=== PATIENT | female | born 1960 | race Hispanic/Latino ===

== ENCOUNTER 2025-02-18 18:20 | Emergency (ER) | payer OTHER ==
[~2025-02-18] VITALS: Ht 170.2 cm; Wt 101.6 kg
[2025-02-18 18:21] VITALS: BP 191/105; PULSE 86; RESP 16; TEMP 99.8
--- NOTE | 2025-02-18 18:28 | ERN ---
ED Note History of Present Illness Stated Complaint: HEADACHE, NECK PAIN X 4 DAYS Chief Complaint: Headache Time Seen by MD: 18:23 Dictation: PATIENT IS A 64-YEAR-OLD FEMALE COMING IN WITH COMPLAINTS OF AN OCCIPITAL HEADACHE WITHOUT NAUSEA VOMITING DIARRHEA OR PERSONALITY CHANGES SHE HAS HAD FOUR DAYS. SHE DOES STATE SHE FELT APPROXIMATE ONE MONTH AGO NO LOC NO NAUSEA VOMITING NO BLOOD THINNERS. SHE STATES WHEN THE PAIN STARTED THIS TIME SHE WAS AT A IN [facility], DID NOT STOP BECAUSE THE EMERGENCY ROOMS ANALYSIS [place] DO NOT ACCEPT [facility]. FEEL THEY FINISHED UP THERE PROCEEDINGS AND THEN CAME BACK TO [place]. Allergies: Coded Allergies: Penicillins (Unverified Allergy, Unknown, 02/18/25) Past Medical History Past Medical History: CHF, Diabetes-Type II, High Cholesterol, Heart Disease, Hypertension Surgical History: Hysterectomy, Cholecystectomy, Pacer/AICD Surgical History Other: THYROID History: Not Applicable RN Note Reviewed/Agreed w/PFSH: Yes Review of System Dictation CONSTITUTIONAL: NEGATIVE EXCEPT FOR HPI HEAD/FACE: NEGATIVE EXCEPT FOR HPI EENT: NEGATIVE EXCEPT FOR HPI RESPIRATORY: NEGATIVE EXCEPT FOR HPI GASTROINTESTINAL/ABDOMINAL: NEGATIVE EXCEPT FOR HPI GENITOURINARY: NEGATIVE EXCEPT FOR HPI MUSCULOSKELETAL: NEGATIVE EXCEPT FOR HPI INTEGUMENTARY: NEGATIVE EXCEPT FOR HPI NEUROLOGICAL/PSYCH: NEGATIVE EXCEPT FOR HPI OCCIPITAL HEADACHE HEMATOLOGIC/LYMPHATIC: NEGATIVE EXCEPT FOR HPI ALL SYSTEMS NEGATIVE, EXCEPT NOTED ABOVE. 13 POINT REVIEW OF SYSTEMS ASSESSED AND ALL NEGATIVE EXCEPT FOR ABOVE. Initial Vital Sign VS Vital Signs Date Time Temp Pulse Resp B/P (MAP) Pulse Ox O2 Delivery O2 Flow Rate FiO2 02/18/25 18:21 99.9 86 16 191/105 94 Room Air 0 Physical Exam Dictation VITAL SIGNS REVIEWED GENERAL APPEARANCE: ALERT, ORIENTED X 3, N MILD ACUTE DISTRESS, WELL DEVELOPED, NOURISHED. MORBID OBESITY HEAD AND FACE: NON-TRAUMATIC. EYES: PERRL, PINK CONJUNCTIVAS, EYELID NO TRAUMA, ANTERIOR CHAMBER WITH ARCUS SENILIS. EARS: PINNAS INTACT AND NO SIGNS OF TRAUMA OR ERYTHEMA EAR CANALS CLEAR AND NO DISCHARGE TM NO ERYTHEMA NOSE: NO DISCHARGE, NO BLEEDING. OROPHARYNX: MOUTH NORMAL, TONGUE PINK, PHARYNX CLEAR,NO ERYTHEMA, TONSILS NO EXUDATES, NO ABSCESSES NOTED, MUCOUS MEMBRANE MOIST NECK: SUPPLE, NON-TENDER, NO THYROMEGALY, NO MASSES, NO JVD, NO BRUITS BREAST:DEFERRED CHEST:NO TENDERNESS, NO CREPITUS, NO PARADOXICAL MOVEMENT, NO RETRACTIONS LUNGS:CLEAR, WELL-VENTILATED, SYMMETRIC, NO RALES, NO WHEEZING, NO RHONCHI, NO STRIDOR, GOOD BREATH SOUNDS BILATERALLY HEART: REGULAR RATE, REGULAR RHYTHM, NO MURMUR, NO GALLOPS VASCULAR: NO PERIPHERAL EDEMA, ABDOMEN: SOFT, POSITIVE BOWEL SOUNDS, NONDISTENDED, NO GUARDING, NONTENDER, NO REBOUND, NO MASSES NO HEPATOMEGALY, NO SPLENOMEGALY, NO DISLA'S SIGN, NO HERNIAS. RECTAL: DEFERRED GENITAL: DEFERRED NEUROLOGICAL: NORMAL SPEECH, MOTOR FUNCTION INTACT, SENSORY FUNCTION INTACT NIH IS 0 MUSCULOSKELETAL: NECK NONTENDER, FULL RANGE OF MOTION, BACK NONTENDER, FULL RANGE OF MOTION, NO MIDLINE SPINE PAIN NO STEP-OFFS EXTREMITIES: NONTENDER, FULL RANGE OF MOTION SKIN: COLOR PINK, DRY, NO TURGOR, NO RASH, NO LACERATIONS, NO ABRASIONS, NO CONTUSIONS. LYMPHATIC: DEFERRED Results (Laboratory/Radiology) Laboratory/Radiology CT Head Without IV contrast. CLINICAL HISTORY: OCCIPITAL HEADACHE FOUR DAYS. TECHNIQUE: Axial computed tomography images of the head/brain without intravenous contrast. COMPARISON: None provided. FINDINGS: BRAIN: No evidence of acute hemorrhage. No mass lesion. No CT evidence for acute territorial infarct. No midline shift or extra-axial collections. VENTRICLES: No hydrocephalus. ORBITS: The orbits are unremarkable. SINUSES AND MASTOIDS: The paranasal sinuses and mastoid air cells are clear. BONES: No fracture. SOFT TISSUES: Unremarkable. IMPRESSION: No acute intracranial abnormality. /[place] [facility] Reviewed?: Yes ED Course ED Course Orders Procedure Category Date Status Time Ct Head/Brain W/O CT 02/18/25 Resulted Contrast 18:25 Acetaminophen 500mg PHA 02/18/25 Complete Tab (Tylenol 500mg T 18:30 Clonidine Hcl 0.2 Mg PHA 02/18/25 Complete Tablet (Catapres 0. 19:30 Current Medications Medications (Trade) Dose Ordered Sig/Augustus Route PRN Reason Start Time Stop Time Status Last Admin Dose Admin Acetaminophen (TYLenol 500MG TAB) 1,000 mg ONCE ONCE PO 02/18/25 18:30 02/18/25 18:31 DC Clonidine HCl (CATApres 0.2 MG TAB) 0.2 mg ONCE ONCE PO 02/18/25 19:30 02/18/25 19:31 DC Vital Signs Date Time Temp Pulse Resp B/P (MAP) Pulse Ox O2 Delivery O2 Flow Rate FiO2 02/18/25 18:21 99.9 86 16 191/105 94 Room Air 0 1920/CT OF THE HEAD NEGATIVE. PATIENT HAS BLOOD PRESSURE 194/105. SHE STATES HE TOOK HER BLOOD PRESSURE MEDICATIONS THIS MORNING. WE WILL FOLLOW UP WITH CLONIDINE 0.2 P.O. WE WILL REDUCE HER BLOOD PRESSURE AND HAVE HER FOLLOW UP WITH HER PRIMARY CARE DOCTOR FOR MANAGEMENT.2149/PATIENT AND HER STILL IN THE WAITING ROOM. THEY WERE MADE AWARE THAT THERE WE WILL BE AN EXTENDED WAIT TO GET PATIENT BACK IN. THEY SAID THEY COULD SEE THEIR PRIMARY CARE DOCTOR TOMORROW AND SHE SAID SHE HAS A MOTRIN 800 FOR HER HEADACHE. I ADVISED HIM THEY COULD THINK IT STAY IN AND BE SEEN WHEN BEDS ARE AVAILABLE THEY DECIDED TO GO AND WE WILL SEE THEIR DOCTOR IN [facility] TOMORROW NIH IS 0 Medical Decision Making MDM MEDICAL DISCHARGE MAKING BASED ON EMPIRIC TREATMENT FOR PAIN AND A CT OF THE HEAD TO RULE OUT SUBARACHNOID BLEED VERSUS FRACTURE FROM THE FALL. CT NEGATIVE PATIENT STATES SHE DOES NOT WISH TO STAY IN THE HOSPITAL AND WE WILL FOLLOW UP WITH HER DOCTOR TOMORROW IN [place], [place] SHE STATES SHE HAS A ALL OF HER HYPERTENSIVE MEDICATIONS AND HAS A IBUPROFEN TO TAKE IN HER PURSE. NIH IS 0 ALL QUESTIONS ANSWERED DX & DISP Disposition: Discharge Departure Impression: Primary Impression: Posttraumatic headache Additional Impression: Accelerated hypertension Condition: Stable Additional Instructions: FOLLOW-UP WITH PRIMARY CARE PROVIDER IN 1 TO 2 DAYS. TAKE MEDICATIONS DIRECTED HERE IN THE EMERGENCY ROOM. OKAY TO CONTINUE HOME MEDICATIONS UNLESS OTHERWISE DISCUSSED DURING YOUR VISIT IN THE EMERGENCY ROOM TODAY. RETURN TO YOUR NEAREST EMERGENCY ROOM IF SYMPTOMS WORSEN OR IF THERE IS NO IMPROVEMENT. CALL 911 IF YOU NEED IMMEDIATE ASSISTANCE. TAKE TYLENOL OR MOTRIN [id number] TER NEEDED AND IF NO CONTRAINDICATIONS ARE PRESENT. INCREASE ORAL HYDRATION. A WOUND CULTURE OR URINE CULTURE WAS ORDERED HERE IN THE EMERGENCY ROOM DEPARTMENT PLEASE FOLLOW-UP WITH PRIMARY CARE PROVIDER AND ADVISE THEM TO GET REPEAT PORTS FROM OUR FACILITY. IF YOU HAD ANY TAI WRAP/SPLINTS THAT WERE APPLIED HERE, PLEASE DO NOT REMOVE THEM UNTIL YOU SEE YOUR PRIMARY CARE OR SP ECIALTY. CONTINUE ALL YOUR BLOOD PRESSURE MEDICATIONS AT HOME. SEE YOUR PRIMARY CARE DOCTOR TOMORROW FOR FOLLOW UP AND MANAGEMENT Referrals: INDIO DÍAZ M.D. (PCP) Time of Disposition: 21:55 I have reviewed the case, and I agree with, Diagnosis and Plan JON JORDAN NP Feb 18, 2025 18:28
--- NOTE | 2025-02-18 19:11 | HMCIMG ---
EXAM: CT Head Without IV contrast. CLINICAL HISTORY: OCCIPITAL HEADACHE FOUR DAYS. TECHNIQUE: Axial computed tomography images of the head/brain without intravenous contrast. COMPARISON: None provided. FINDINGS: BRAIN: No evidence of acute hemorrhage. No mass lesion. No CT evidence for acute territorial infarct. No midline shift or extra-axial collections. VENTRICLES: No hydrocephalus. ORBITS: The orbits are unremarkable. SINUSES AND MASTOIDS: The paranasal sinuses and mastoid air cells are clear. BONES: No fracture. SOFT TISSUES: Unremarkable. IMPRESSION: No acute intracranial abnormality. /[place]
--- NOTE | 2025-02-18 22:04 | NUR ---
PT ELOPED PRIOR TO MED ADMINISTRATION
== END 2025-02-18 22:05 | disposition left against medical advice (07) ==
LOC: EDH 18:20
DX: G44.309 Post-traumatic headache, unspecified, not intractable (principal); I11.0 Hypertensive heart disease with heart failure; I50.9 Heart failure, unspecified; E11.9 Type 2 diabetes mellitus without complications; E78.00 Pure hypercholesterolemia, unspecified; Z88.0 Allergy status to penicillin; Z90.49 Acquired absence of other specified parts of digestive tract; Z90.710 Acquired absence of both cervix and uterus; Z95.810 Presence of automatic (implantable) cardiac defibrillator
CPT/HCPCS: 70450; 99284